=== PATIENT | male | born 1990 | race Caucasian/White ===

== ENCOUNTER 2017-02-20 22:40 | Emergency (ER) | payer OTHER ==
[~2017-02-20] VITALS: Ht 180.3 cm; Wt 90.7 kg
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
--- NOTE | 2017-02-20 22:55 | NUR ---
CAR REPOSSESSOR AT BEDSIDE FOR EVAL. Addendum: 02/21/17 at 0416 by DAMARI CAR REPOSSESSOR TO DRAW BLOOD.
[2017-02-20 23:09] LABS: BASOPHILS % (AUTO) 0.6 % (0.0-2.0); EOSINOPHILS # (AUTO) 0.1 /CMM (0.0-0.7); EOSINOPHILS % (AUTO) 1.1 % (0.0-6.0); HEMATOCRIT 50 % (39-51); LYMPHOCYTES # (AUTO) 2.5 /CMM (0.8-4.8); LYMPHOCYTES % (AUTO) 38.3 % (20.0-44.0); MEAN CORPUSCULAR HEMOGLOBIN 31 PG (26.0-33.0); MEAN CORPUSCULAR HGB CONC 34 g/dl (31.0-36.0); MEAN CORPUSCULAR VOLUME 91 fL (80-96); MONOCYTES # (AUTO) 0.3 /CMM (0.1-1.30); MONOCYTES % (AUTO) 3.9 % (2.0-12.0); NEUTROPHILS # (AUTO) 3.7 /CMM (1.8-8.9); NEUTROPHILS % (AUTO) 56.1 % (43.0-81.0); PLATELET COUNT (AUTO) 208 /CMM (150-450); RDW COEFFICIENT OF VARIATION 13.6 (11.5-15.0); RED BLOOD CELL COUNT(AUTO) 5.49 MIL/uL (4.5-6.0); WHITE BLOOD COUNT (AUTO) 6.7 K/uL (4.3-11.0)
--- NOTE | 2017-02-20 23:13 | NUR ---
MANAGER LVN AT BEDSIDE FOR EVAL.
[2017-02-20 23:16] LABS: CALCIUM, SERUM 8.6 mg/dL (8.5-10.1); CREATININE 1.2 mg/dL (0.6-1.3); POTASSIUM 3.8 mmol/L (3.5-5.1)
[2017-02-20 23:21] LABS: ALBUMIN 4.6 g/dL (3.4-5.0); BILIRUBIN,DIRECT 0.2 mg/dL (0.0-0.2); BILIRUBIN,TOTAL 0.5 mg/dL (0.2-1.0); TOTAL PROTEIN, SERUM 8.3 g/dL (6.4-8.2)
[2017-02-20 23:55] LABS: APPEARANCE,URINE SL CLOUDY (CLEAR); BILIRUBIN,URINE NEGATIVE (NEGATIVE); BLOOD, URINE TRACE Ery/uL (NEGATIVE); COLOR,URINE YELLOW (YELLOW); KETONES,URINE NEGATIVE (NEGATIVE); LEUKOCYTE ESTERASE ,URINE NEGATIVE (NEGATIVE); NITRITE, URINE NEGATIVE (NEGATIVE); PROTEIN,URINE 2+ mg/dl (NEGATIVE); UGLUCOSE NEGATIVE (NEGATIVE); UROBILINOGEN,URINE 0.2 EU/dL (0.2)
[2017-02-21 00:02] LABS: RBC,URINE 0-2 /HPF (0-2); SQUAMOUS EPITHELIAL CELL,UR Rare /HPF (None Seen)
[2017-02-21 00:03] LABS: BACTERIA,URINE None seen /HPF (None Seen)
[2017-02-21 00:06] LABS: COARSE GRANULAR CASTS,URINE Rare /LPF (None Seen); FINE GRANULAR CASTS,URINE Rare /LPF (None Seen)
--- NOTE | 2017-02-21 02:45 | NUR ---
patient sleeping comfortably in bed. vss.
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
--- NOTE | 2017-02-21 04:10 | NUR ---
PT REQUESTED WRITTEN MATERIAL EXPLAINING WHY HE MUST STAY IN THE ER UNTIL HE IS EVALUATED SONIA SHELTON LCSW. PT GIVEN COPY OF [place] HEALTH AND SAFETY CODE. [place] HEALTH AND SAFETY CODE Section 1296.080 0317.111. (a) Subject to subdivision (b), a licensed general acute care hospital, as defined in subdivision (a) of Section 1250, that is not a county-designated facility pursuant to Section 5150 of the Welfare and Institutions Code, a licensed acute psychiatric hospital, as defined in subdivision (b) of Section 1250, that is not a county-designated facility pursuant to Section 5150 of the Welfare and Institutions Code, licensed professional staff of those hospitals, or any physician and surgeon, providing emergency medical services in any department of those hospitals to a person at the hospital shall not be civilly or criminally liable for detaining a person if all of the following conditions exist during the retirement: (1) The person cannot be safely released from the hospital because, in the opinion of the treating physician and surgeon, or a clinical psychologist with the medical staff privileges, clinical privileges, or professional responsibilities provided in Section 1316.5, the person, as a result of a mental disorder, presents a danger to himself or herself, or others, or is gravely disabled. For purposes of this paragraph, gravely disabled means an inability to provide for his or her basic personal needs for food, clothing, or assisted. (2) The hospital staff, treating physician and surgeon, or appropriate licensed mental health professional, have made, and documented, repeated unsuccessful efforts to find appropriate mental health treatment for the person. (A) Telephone calls or other contacts required pursuant to this paragraph shall commence at the earliest possible time when the treating physician and surgeon has determined the time at which the person will be medically stable for transfer. (B) In no case shall the contacts required pursuant to this paragraph begin after the time when the person becomes medically stable for transfer. (3) The person is not detained beyond 24 hours. (4) There is probable cause for the retirement. (b) If the person is detained pursuant to subdivision (a) beyond eight hours, but less than 24 hours, both of the following additional conditions shall be met: (1) A discharge or transfer for appropriate evaluation or treatment for the person has been delayed because of the need for continuous and ongoing care, observation, or treatment that the hospital is providing. (2) In the opinion of the treating physician and surgeon, or a clinical psychologist with the medical staff privileges or professional responsibilities provided for in Section 1316.5, the person, as a result of a mental disorder, is still a danger to himself or herself, or others, or is gravely disabled, as defined in paragraph (1) of subdivision (a). (c) In addition to the immunities set forth in subdivision (a), a licensed generalacute care hospital, as defined in subdivision (a) of Section 1250 that is not [facility]-designated facility pursuant to Section 5150 of the Welfare and InstitutionsCode, a licensed acute psychiatric hospital as defined by subdivision (b) of [id number] that is not a formerly [facility]-designated facility pursuant to Section 5150 of the Welfareand [place] Code, licensed professional staff of those hospitals, or any physicianand surgeon, providing emergency medical services in any department of thosespitals to a person at the hospital shall not be civilly or criminally liable for theactions of a person detained up to 24 hours in those hospitals who is subject todetention pursuant to subdivision (a) after that persons release from the retirement att hospital, if all of the following conditions exist during the retirement: (1) The person has not been admitted to a licensed general acute care hospital ora licensed acute psychiatric hospital for evaluation and treatment pursuant to [id number] of the Welfare and Institutions Code. (2) The release from the licensed general acute care hospital or the licensed acutepsychiatric hospital is authorized by a physician and surgeon or a clinical psychologistwith the medical staff privileges or professional responsibilities provided for in [id number], who determines, based on a [id number] examination of the person detained,that the person does not present a danger to himself or herself or others and is notgravely disabled, as defined in paragraph (1) of subdivision (a). In order for thisparagraph to apply to a clinical psychologist, the clinical psychologist shall have acollaborative treatment relationship with the physician and surgeon. The clinicalpsychologist may authorize the release of the person from the retirement, but only afterhe or she has consulted with the physician and surgeon. In the event of a clinical orprofessional disagreement regarding the release of a person subject to the retirement,the retirement shall be maintained unless the hospitals senior medical director overrules thedecision of the physician and surgeon opposing the release. Both the physician andsurgeon and the clinical psychologist shall enter their findings, concerns, or objectionsin the persons medical record. (d) Nothing in this section shall affect the responsibility of a general acute carehospital or an acute psychiatric hospital to comply with all state laws and regulationspertaining to the use of seclusion and restraint and psychiatric medications forpsychiatric patients. Persons detained under this section shall retain their legal rightsregarding consent for medical treatment. (e) A person detained under this section shall be credited for the time detained, upto 24 hours, in the event he or she is placed on a subsequent 72-hour hold pursuantto Section 5150 of the Welfare and Institutions Code. (f) The amendments to this section made by the act adding this subdivision shallnot be construed to limit any existing duties for psychotherapists contained in Gkfgbha30.92 of the Civil Code. (g) Nothing in this section is intended to expand the scope of licensure of clinicalpsychologists. (Amended by Stats. 2009, Ch. 612, Sec. 1. (SB 743) Effective September 27, 2009.)
--- NOTE | 2017-02-21 04:15 | NUR ---
Patient with Art, Crisis Java Developer, at bedside.
--- NOTE | 2017-02-21 05:13 | NUR ---
Patient signed a safety contract. Denies SI/HI. Patient discharged to home in stable condition. Written and verbal after care instructions given. Patient verbalizes understanding of instruction. Patient is ambulatory with steady gait.
[2017-02-21 05:15] VITALS: BP 101/60
== END 2017-02-21 05:15 | disposition home or self-care (01) ==
LOC: ER 22:41
DX: S51.831A Puncture wound without foreign body of right forearm, initial encounter (principal); F12.10 Cannabis abuse, uncomplicated; F31.9 Bipolar disorder, unspecified; W25.XXXA Contact with sharp glass, initial encounter; Y93.89 Activity, other specified; Y92.89 Other specified places as the place of occurrence of the external cause; Y99.9 Unspecified external cause status
CPT/HCPCS: 36415; 73090; 80048; 80076; 80305; 80329; 81001; 85025; 99285; A4606; A6402; G0480 ×2; Z7610; 81000-TC; G6039-TC

== ENCOUNTER 2017-08-17 16:59 | Emergency (ER) | payer SELFPAY ==
[~2017-08-17] VITALS: Ht 180.3 cm; Wt 99.8 kg
[2017-08-17 17:03] VITALS: BP 157/75
== END 2017-08-17 17:43 | disposition home or self-care (01) ==
LOC: ER 17:00
DX: S61.210A Laceration without foreign body of right index finger without damage to nail, initial encounter (principal); F32.9 Major depressive disorder, single episode, unspecified; F10.10 Alcohol abuse, uncomplicated; W25.XXXA Contact with sharp glass, initial encounter; Y93.89 Activity, other specified; Y92.89 Other specified places as the place of occurrence of the external cause; Y99.8 Other external cause status
CPT/HCPCS: 99283; A4606; Z7610

== ENCOUNTER 2017-08-24 17:03 | Emergency (ER) | payer SELFPAY ==
[~2017-08-24] VITALS: Ht 180.3 cm; Wt 102.1 kg
[2017-08-24 17:55] VITALS: BP 157/77
--- NOTE | 2017-08-24 17:55 | NUR ---
SEEN AND ASSESSED BY MARSJOSE E, IN HOME SALES REPRESENTATIVE
[2017-08-24] MEDS ORDERED: LORAZEPAM 1 MG TABLET PO ONE (18:00)
[2017-08-24] MEDS ORDERED: LORAZEPAM 1 MG TABLET ONE (18:09)
== END 2017-08-24 18:20 | disposition home or self-care (01) ==
LOC: ER 17:04
DX: F41.9 Anxiety disorder, unspecified (principal); R11.2 Nausea with vomiting, unspecified; T50.995A Adverse effect of other drugs, medicaments and biological substances, initial encounter; F31.9 Bipolar disorder, unspecified; F17.200 Nicotine dependence, unspecified, uncomplicated; Y92.89 Other specified places as the place of occurrence of the external cause
CPT/HCPCS: 99284; 99406; A4606; Z7610

== ENCOUNTER 2021-02-14 18:15 | Inpatient (IN) | payer SELFPAY ==
[~2021-02-14] VITALS: Ht 175.3 cm; Wt 131.5 kg
--- NOTE | 2021-02-14 19:55 | NUR ---
blood collected and sent to the lab
[2021-02-14 19:57] LABS: BASOPHILS # (AUTO) 0.1 /CMM (0.0-0.2); BASOPHILS % (AUTO) 0.7 % (0.0-2.0); EOSINOPHILS % (AUTO) 0.5 % (0.0-6.0); HEMATOCRIT 48 % (39-51); LYMPHOCYTES # (AUTO) 2.3 /CMM (0.8-4.8); LYMPHOCYTES % (AUTO) 28.7 % (20.0-44.0); MEAN CORPUSCULAR HGB CONC 33 g/dl (31.0-36.0); MEAN CORPUSCULAR VOLUME 93 fL (80-96); MONOCYTES # (AUTO) 0.5 /CMM (0.1-1.30); MONOCYTES % (AUTO) 5.8 % (2.0-12.0); NEUTROPHILS # (AUTO) 5.2 /CMM (1.8-8.9); NEUTROPHILS % (AUTO) 64.3 % (43.0-81.0); PLATELET COUNT (AUTO) 219 /CMM (150-450); RED BLOOD CELL COUNT(AUTO) 5.16 MIL/uL (4.5-6.0); WHITE BLOOD COUNT (AUTO) 8.1 K/uL (4.3-11.0)
[2021-02-14] MEDS ORDERED: VANCOMYCIN 1 GM in IV D5W 250 ML IV ONE (20:00)
[2021-02-14 20:09] LABS: CARBON DIOXIDE 26 mmol/L (21-32); CHLORIDE 103 mmol/L (98-107); GLUCOSE 86 mg/dL (74-106); POTASSIUM 4.1 mmol/L (3.5-5.1); SODIUM SERUM 140 mmol/L (136-145); UREA NITROGEN, BLOOD 10 mg/dL (7-18)
[2021-02-14 20:15] LABS: ALANINE AMINOTRANSFERASE 37 U/L (12-78); ALBUMIN 4.1 g/dL (3.4-5.0); ALKALINE PHOSPHATASE 107 U/L (46-116); ASPARTATE AMINOTRANSFERASE 23 U/L (15-37); BILIRUBIN,DIRECT 0.1 mg/dL (0.0-0.2); BILIRUBIN,TOTAL 0.4 mg/dL (0.2-1.0); TOTAL PROTEIN, SERUM 8.1 g/dL (6.4-8.2)
[2021-02-14] MEDS ORDERED: VANCOMYCIN 1 GM VIAL ONE (20:15)
--- NOTE | 2021-02-14 20:16 | NUR ---
PATIENT COMPLAINING OF PAIN ON LEFT FOREARM, MD NOTIFIED. MD VERBAL ORDER TO GIVE IV TORADOL 15MG. WILL MEDICATE ORDERED
[2021-02-14] MEDS ORDERED: KETOROLAC TROMETHAMINE 15 MG/ML VIAL ONE (20:17)
--- NOTE | 2021-02-14 20:22 | NUR ---
rapid covid swab sample collected and sent to the lab
--- NOTE | 2021-02-14 20:25 | NUR ---
XRAY AT BEDSIDE.
[2021-02-14] MEDS ORDERED: KETOROLAC TROMETHAMINE INJ 30 MG/ML VIAL IV ONE (20:30)
[2021-02-14 20:42] LABS: BILIRUBIN,URINE Negative (NEGATIVE); COLOR,URINE YELLOW (YELLOW); LEUKOCYTE ESTERASE ,URINE Negative (NEGATIVE); NITRITE, URINE Negative (NEGATIVE); PROTEIN,URINE Negative (NEGATIVE); UGLUCOSE Negative (NEGATIVE); UROBILINOGEN,URINE 0.2 EU/dL (0.2)
[2021-02-14 21:17] LABS: BACTERIA,URINE Rare /HPF (None Seen); RBC,URINE 0-2 /HPF (0-2); SQUAMOUS EPITHELIAL CELL,UR Rare /HPF (None Seen); WBC,URINE 0-2 /HPF (0-3)
--- NOTE | 2021-02-14 21:43 | NUR ---
DR. ZAMAN SPEAKING WITH ROSHNI MONTEMAYOR REGARDING ADMISSION
--- NOTE | 2021-02-14 22:35 | NUR ---
MS/RN OPENING NOTES RECEIVED REPORT FROM ER NURSE DIANE AT 2328HRS FOR PATIENT COMING TO ROOM 313-2. PATIENT ARRIVED ON UNIT AT 2345HRS, NO INJURIES SUSTAINED DURING TRANSPORT. PATIENT TRANSFERRED TO BED SAFELY. PATIENT IS A/OX 4. PATIENT BREATHING IS EVEN AND UNLABORED, NO SIGNS OF SOB OR RESPIRATORY DISTRESS NOTED. PATIENT STABLE ON ROOM AIR, V/S ARE WNL. PATIENT IV ACCESS ON RIGHT AC INTACT AND FLUSHING WELL. PATIENT HAS REDNESS ON LEFT FA ARM AREA. PATIENT SIGNED ALL BELONGINGS LIST. SAFETY MEASURES ARE IN PLACE, BED IS LOCKED AND PLACED IN THE LOWEST POSITION, SIDE RAILS UP X 2, CALL LIGHT IS WITHIN REACH. WILL CONTINUE WITH PATIENT PLAN OF CARE. Addendum: 02/15/21 at 0305 by AILYN SNEED RN TIME CORRECTION [id number]
--- NOTE | 2021-02-14 23:17 | NUR ---
BED ASSIGNMENT 313-2
[2021-02-14 23:30] VITALS: BP 149/72
--- NOTE | 2021-02-14 23:30 | NUR ---
REPORT GIVEN TO AILYN WATSON FOR [facility]ERSON.
--- NOTE | 2021-02-14 23:40 | NUR ---
PATIENT TAKEN UP TO ASSIGNED ROOM FOR GRESON.
[2021-02-15] MEDS ORDERED: MAG HYDROX/AL HYDROX/SIMETH 30 ML UDC PO PRN (01:00)
[2021-02-15] MEDS ORDERED: HYDROCODONE/APAP 5/325MG TABLET PO PRN (01:00)
[2021-02-15] MEDS ORDERED: MAGNESIUM HYDROXIDE 30 ML UDC PO PRN (01:00)
[2021-02-15] MEDS ORDERED: ONDANSETRON HCL/PF 4 MG/2 ML VIAL IVP PRN (01:00)
[2021-02-15] MEDS ORDERED: ACETAMINOPHEN 325 MG TABLET PO PRN (01:00)
[2021-02-15] MEDS: PANTOPRAZOLE 40 MG TABLET.DR PO SCH ×2 (01:30→08:15)
[2021-02-15] MEDS: MORPHINE SULFATE INJ 2 MG/ML DISP.SYRIN IV PRN ×2 (01:31→19:45)
--- NOTE | 2021-02-15 01:35 | NUR ---
MS/RN NOTES PAIN STATED 10/10 PAIN RIGHT FOREARM. PATIENT GIVEN MORPHINE 2 MG IVP. V/S WNL, WILL CONTINUE TO MONITOR.
--- NOTE | 2021-02-15 06:50 | NUR ---
MS/RN CLOSING NOTES PATIENT IN BED SLEEPING EASY TO WAKE. PATIENT IS A/O X 4. PATIENT BREATHING EVENLY AND NONLABORED, STABLE ON ROOM AIR. NO SIGNS OF ACUTE DISTRESS NOTED. PATIENT HAS RAC 18G PATENT AND INTACT. ALL NEEDS HAVE BEEN MET DURING SHIFT. SAFETY MEASURES ARE IN PLACE, BED LOW LOCKED AND PLACED IN THE LOW POSITION, SIDE RAILS UP X 3 AND CALL LIGHT WITHIN REACH. WILL ENDORSE CARE TO DAY SHIFT NURSE.
[2021-02-15] MEDS ORDERED: QUET200T PO (07:36)
[2021-02-15 08:00] VITALS: BP 148/97
--- NOTE | 2021-02-15 08:00 | NUR ---
RN OPENING NOTE RECEIVED PATIENT IN BED, AO X 4, ABLE TO RESPONDS ALL STIMULI. DOES NO APPEARS DISTRESS OR DISCOMFORT. SKIN IS WARM TO TOUCH, KEEP CLEAN/DRY INTACT IV SITE. RESPIRATORY EVEN AND UNLABORED IN ROOM AIR. KEPT ELEVATED HOB FOR ENSURE AIR AND ASPIRATION PRECAUTION, ALSO LOWEST BED POSITION FOR SAFETY. CALL LIGHT WITHIN REACH, WILL CONTINUE TO MONITOR.
[2021-02-15] MEDS: VANCOMYCIN 1.5 GM in IV D5W 500 ML IV SCH ×2 (08:15→19:45)
--- NOTE | 2021-02-15 18:20 | NUR ---
RN CLOSING NOTE PATIENT RESTING IN BED, REMAINS AO X 4, DENIES DISTRESS OR DISCOMFORT. SKIN IS WARM TOUCH, KEEP CLEAN/DRY INTACT IV SITE, NO S/S OF ADVERSE REACTION OBSERVED FROM ABX IV. RESPIRATORY EVEN AND UNLABORED IN ROOM AIR. KEPT ELEVATED HOB FOR ENSURE AIRWAY, ALSO LOWEST BED POSITION FOR SAFETY. CALL LIGHT WITHIN REACH, WILL ENDORSE REEL TENDER.
--- NOTE | 2021-02-15 19:30 | NUR ---
MS/RN OPENING NOTES PATIENT IN [place] RESTING. PATIENT IS A/O X 4. PATIENT BREATHING EVENLY AND NONLABORED, STABLE ON ROOM AIR. NO SIGNS OF ACUTE DISTRESS NOTED. PATIENT HAS RAC 18G PATENT AND INTACT. SAFETY MEASURES ARE IN PLACE, BED LOW LOCKED AND PLACED IN THE LOW POSITION, SIDE RAILS UP X 2 AND CALL LIGHT WITHIN REACH. WILL CONTINUE WITH PATIENT PLAN OF CARE.
--- NOTE | 2021-02-15 19:45 | NUR ---
MS/RN NOTES PATIENT STATED PAIN AT RIGHT FOREARM. PATIENT GIVEN MORPHINE 2 MG IVP. V/S WNL, WILL CONTINUE TO MONITOR.
[2021-02-15 20:00] VITALS: BP 140/101
[2021-02-16 06:47] LABS: BASOPHILS % (AUTO) 0.4 % (0.0-2.0); EOSINOPHILS % (AUTO) 0.8 % (0.0-6.0); HEMATOCRIT 45 % (39-51); HEMOGLOBIN 15.6 g/dL (13.5-17.5); LYMPHOCYTES # (AUTO) 2.2 /CMM (0.8-4.8); LYMPHOCYTES % (AUTO) 22.8 % (20.0-44.0); MEAN CORPUSCULAR HGB CONC 35 g/dl (31.0-36.0); MEAN CORPUSCULAR VOLUME 91 fL (80-96); MONOCYTES # (AUTO) 0.7 /CMM (0.1-1.30); MONOCYTES % (AUTO) 7.1 % (2.0-12.0); NEUTROPHILS # (AUTO) 6.7 /CMM (1.8-8.9); NEUTROPHILS % (AUTO) 68.9 % (43.0-81.0); PLATELET COUNT (AUTO) 213 /CMM (150-450); RED BLOOD CELL COUNT(AUTO) 4.92 MIL/uL (4.5-6.0); WHITE BLOOD COUNT (AUTO) 9.7 K/uL (4.3-11.0)
--- NOTE | 2021-02-16 06:55 | NUR ---
MS/RN CLOSING NOTES PATIENT IN BED SLEEPING EASY TO WAKE. PATIENT IS A/O X 4. PATIENT BREATHING EVENLY AND NONLABORED, STABLE ON ROOM AIR. NO SIGNS OF ACUTE DISTRESS NOTED. PATIENT HAS R WRIST 22 G PATENT AND INTACT. ALL NEEDS HAVE BEEN MET DURING SHIFT. SAFETY MEASURES ARE IN PLACE, BED LOW LOCKED AND PLACED IN THE LOW POSITION, SIDE RAILS UP X 3 AND CALL LIGHT WITHIN REACH. WILL ENDORSE CARE TO DAY SHIFT NURSE.
[2021-02-16 07:22] LABS: CALCIUM, SERUM 8.4 mg/dL (8.5-10.1); MAGNESIUM 2.3 mg/dL (1.8-2.4); PHOSPHORUS 3.9 mg/dL (2.5-4.9); POTASSIUM 4.1 mmol/L (3.5-5.1)
[2021-02-16 07:28] LABS: C-REACTIVE PROTEIN 0.5 mg/dL (0.0-0.9)
--- NOTE | 2021-02-16 08:00 | NUR ---
RN OPENING NOTE RECEIVED PATIENT IN BED, AO X 4, ABLE TO RESPONDS ALL STIMULI. DENIES DISTRESS OR DISCOMFORT. SKIN IS WARM TO TOUCH, KEEP CLEAN/DRY INTACT IV SITE. RESPIRATORY EVEN AND UNLABORED IN ROOM AIR. KEPT ELEVATED HOB FOR ENSURE AIR AND ASPIRATION PRECAUTION, ALSO LOWEST BED POSITION FOR SAFETY. CALL LIGHT WITHIN REACH, WILL CONTINUE TO MONITOR.
[2021-02-16] MEDS: PANTOPRAZOLE 40 MG TABLET.DR PO SCH (08:08)
[2021-02-16] MEDS ORDERED: VANCOMYCIN 1.5 GM in IV D5W 500 ML IV SCH (09:00)
[2021-02-16] MEDS ORDERED: SULF1TAB48 PO (09:17)
--- NOTE | 2021-02-16 12:22 | NUR ---
PATIENT DISCHARGE TO HOME, GIVEN DISCHARGE INSTRUCTION INCLUDE FIELD CREW CHIEF PRESCRIBED MEDICATION, SIDE EFFECT, AND ORAL FLUID INTAKE TOLERATED, PATIENT VERBALLY UNDERSTAND. PATIENT REFUSED DISCHARGE ON WHEEL CHAIR, LEFT FACILITY IN STABLE CONDITION.
== END 2021-02-16 12:25 | disposition home or self-care (01) | DRG 603 ==
LOC: ER 18:19 → MED 23:32
PROVIDERS: ADMIT Nurse Practitioner Family; ATTEND Registered Nurse
DX: L03.114 Cellulitis of left upper limb (principal); Z68.41 Body mass index [BMI] 40.0-44.9, adult; E66.01 Morbid (severe) obesity due to excess calories; F31.9 Bipolar disorder, unspecified; F41.9 Anxiety disorder, unspecified
CPT/HCPCS: 36415; 71045-TC; 73130-TC; 80048-TC; 80061-TC; 80076-TC; 80202-TC; 81001; 83605-TC; 83735-TC; 84100-TC; 84484-TC; 85025-TC; 85652-TC; 85730-TC; 86140-TC; 87040-TC; 87081-TC; 87086-TC; C9803; G0378; J1885; J2270; J3370; J7050; J7060